=== PATIENT | female | born 1995 | race Caucasian/White ===

== ENCOUNTER 2021-01-03 02:23 | Emergency (ER) | payer BC, OTHER ==
[~2021-01-03 02:23] MED LIST: AMOXICILLIN875 MG PO; IBUPROFEN600 MG PO; TAMIFLU75 MG PO
[2021-01-03 04:19] LABS: HEMOGLOBIN 14.4 gm/dl (12.3-15.3); RED BLOOD COUNT 4.97 M/UL (4.00-5.10)
[2021-01-03 04:41] LABS: BUN/CREATININE RATIO 19 (0-10)
[2021-01-03] MEDS ORDERED: ANTIVERT 12.512.5 MG PO (04:58)
== END 2021-01-03 05:00 | disposition home or self-care (01) ==
LOC: ER1 02:23
PROVIDERS: Emergency Medicine
DX: R42 Dizziness and giddiness (principal)
CPT/HCPCS: 70450; 71045; 80053; 82550; 82553; 83690; 83735; 83874; 84439; 84443; 84484; 84703; 85025; 93005; 99284

== ENCOUNTER 2021-09-02 10:28 | Emergency (ER) | payer OTHER ==
[~2021-09-02 10:28] MED LIST changes: +ANTIVERT 12.512.5 MG PO
[2021-09-02 11:00] LABS: HEMOGLOBIN 13.9 gm/dl (12.3-15.3); RED BLOOD COUNT 4.8 M/UL (4.00-5.10); WHITE BLOOD COUNT 14.5 K/UL (4.5-11.0)
[2021-09-02 11:31] LABS: BUN/CREATININE RATIO 18 (0-10)
[2021-09-02] MEDS ORDERED: ZOFRAN 4 MG TAB4 MG PO (15:53)
[2021-09-02] MEDS ORDERED: PROTONIX40 MG PO (15:53)
== END 2021-09-02 16:05 | disposition home or self-care (01) ==
LOC: ER1 10:28
PROVIDERS: Physician Assistant Medical
DX: R07.89 Other chest pain (principal); R10.13 Epigastric pain
CPT/HCPCS: 71045; 80053; 81001; 82550; 82553; 83605; 83690; 84484; 84702; 84703; 85025; 85379; 93005; 96374; 96375; 99285; C9113; J2270; J2405; Q9967

== ENCOUNTER 2021-12-22 17:33 | Inpatient (IN) | payer OTHER ==
[~2021-12-22] VITALS: Ht 149.9 cm; Wt 100.2 kg
[~2021-12-22 17:33] MED LIST changes: +PROTONIX40 MG PO; +ZOFRAN 4 MG TAB4 MG PO
[2021-12-22 20:19] LABS: HEMOGLOBIN 15.5 gm/dl (12.3-15.3); RED BLOOD COUNT 5.26 M/UL (4.00-5.10); WHITE BLOOD COUNT 15.2 K/UL (4.5-11.0)
[2021-12-22 20:48] LABS: BUN/CREATININE RATIO 15 (0-10)
[2021-12-23 05:53] LABS: BUN/CREATININE RATIO 16 (0-10)
[2021-12-23 05:59] LABS: HEMOGLOBIN 14.7 gm/dl (12.3-15.3); RED BLOOD COUNT 5.03 M/UL (4.00-5.10)
[2021-12-23 06:01] LABS: WHITE BLOOD COUNT 10.4 K/UL (4.5-11.0)
[2021-12-24 06:34] LABS: BUN/CREATININE RATIO 10 (0-10)
== END 2021-12-24 11:00 | disposition home or self-care (01) | DRG 439 ==
LOC: ER1 17:33 → CDU 22:38 → MED SURG 4 12-23 12:22
PROVIDERS: Internal Medicine; Physician Assistant; ADMIT Internal Medicine
DX: K85.10 Biliary acute pancreatitis without necrosis or infection (principal); Z68.41 Body mass index [BMI] 40.0-44.9, adult; E66.01 Morbid (severe) obesity due to excess calories; Z20.822 Contact with and (suspected) exposure to COVID-19; M54.9 Dorsalgia, unspecified; R94.5 Abnormal results of liver function studies; Z98.51 Tubal ligation status; Z83.79 Family history of other diseases of the digestive system; Z83.3 Family history of diabetes mellitus
CPT/HCPCS: 36415; 71045; 76705; 80053; 81001; 82150; 82550; 82553; 83605; 83690; 84478; 84484; 84703; 85025; 87086; 93005; 96374; 96375; 99285; J2270; J2405; Q9967

== ENCOUNTER → 2022-01-10 | Outpatient (CLI) | payer OTHER ==
[~2022-01-10] MED LIST changes: +AMOX TR-K CLV1 EAC4 PO; +BENTYL 20MG TAB20 MG PO; +ONDANSETRON ODT4 MG SL
== END ==
LOC: MRI 08:26
DX: K85.90 Acute pancreatitis without necrosis or infection, unspecified (principal); K80.20 Calculus of gallbladder without cholecystitis without obstruction
CPT/HCPCS: 74181; 80076; 82150; 83690; 85610

== ENCOUNTER 2022-01-13 07:49 | Emergency (ER) | payer OTHER ==
[~2022-01-13 07:49] MED LIST changes: -AMOX TR-K CLV1 EAC4 PO; -BENTYL 20MG TAB20 MG PO; -ONDANSETRON ODT4 MG SL
[2022-01-13 08:33] LABS: RED BLOOD COUNT 5.15 M/UL (4.00-5.10); WHITE BLOOD COUNT 11.7 K/UL (4.5-11.0)
[2022-01-13 09:00] LABS: BUN/CREATININE RATIO 19 (0-10)
[2022-01-13] MEDS ORDERED: ONDANSETRON ODT4 MG SL (12:41)
[2022-01-13] MEDS ORDERED: BENTYL 20MG TAB20 MG PO (12:41)
[2022-01-13] MEDS ORDERED: PROTONIX40 MG PO (12:41)
[2022-01-13] MEDS ORDERED: AMOX TR-K CLV1 EAC4 PO (12:43)
== END 2022-01-13 13:25 | disposition home or self-care (01) ==
LOC: ER1 07:49
PROVIDERS: Physician Assistant
DX: K80.20 Calculus of gallbladder without cholecystitis without obstruction (principal); Z87.19 Personal history of other diseases of the digestive system
CPT/HCPCS: 76705; 80053; 81001; 83690; 84703; 85025; 96374; 96375; 99284; C9113; J1885; J2405

== ENCOUNTER 2022-01-29 12:27 | Observation (INO) | payer MEDICAID ==
[~2022-01-29] VITALS: Ht 149.9 cm; Wt 97.5 kg
[~2022-01-29 12:27] MED LIST changes: +AMOX TR-K CLV1 EAC4 PO; +BENTYL 20MG TAB20 MG PO; +ONDANSETRON ODT4 MG SL
[2022-01-29 15:41] LABS: HEMOGLOBIN 15.8 gm/dl (12.3-15.3); RED BLOOD COUNT 5.4 M/UL (4.00-5.10); WHITE BLOOD COUNT 12.2 K/UL (4.5-11.0)
[2022-01-29 16:02] LABS: BUN/CREATININE RATIO 18 (0-10)
[2022-01-30] MEDS ORDERED: COLACE100 MG PO (11:12)
[2022-01-30] MEDS ORDERED: HYDROCODON-ACE1 EAC4 PO (11:12)
== END 2022-01-30 20:59 | disposition short-term general hospital (02) ==
LOC: ER1 12:27 → MED SURG 4 16:39 → CDU 16:39 → MED SURG 4 16:39
PROVIDERS: Preventive Medicine Occupational Medicine; ADMIT Surgery
DX: K80.10 Calculus of gallbladder with chronic cholecystitis without obstruction (principal); E66.01 Morbid (severe) obesity due to excess calories; Z68.43 Body mass index [BMI] 50.0-59.9, adult
CPT/HCPCS: 76705; 80053; 80307; 81001; 82140; 83690; 84703; 85025; 85652; 86140; 87086; 96374; 96375; 96376; 99284; G0378; J0690; J1100; J1170; J1885; J2001; J2250; J2270; J2370; J2405; J2550; J2704; J2710; J3010; J3480; J7040; Q9967